=== PATIENT | male | born 2000 | race Hispanic/Latino ===

== ENCOUNTER 2022-01-05 07:45 | Day surgery (SDC) | payer BC ==
[2022-01-04 11:40] LABS: Absolute Lymphocytes (CBC) 1.9 K/uL (0.7-4.9); Hematocrit 49.6 % (39.6-49.0); Lymphocytes % 35.5 % (15.3-44.8); MPV 9.4 fL (7.6-11.3); RBC Red Blood Cell Count 5.09 M/uL (4.33-5.43)
[2022-01-04 11:57] LABS: BUN Blood Urea Nitrogen 19 mg/dL (7-18); Bicarbonate 31 mmol/L (21-32); Glucose Level 77 mg/dL (74-106); Potassium 4.6 mmol/L (3.5-5.1); Sodium Level 137 mmol/L (136-145)
[2022-01-05] MEDS ORDERED: Ringers Lactate 1,000 ML IV ONE (07:51)
[2022-01-05 08:27] VITALS: O2SAT 100
[2022-01-05] MEDS ORDERED: ACETAMINOPHEN 500 MG TAB ONE (08:53)
[2022-01-05] MEDS ORDERED: CELECOXIB 100 MG CAPSULE ONE ×2 (08:54→08:55)
[2022-01-05] MEDS ORDERED: FENTANYL CITR 100 MCG/2 ML ONE (09:06)
[2022-01-05] MEDS ORDERED: LIDOCAINE 1% MPF 5 ML VIAL ONE (09:06)
[2022-01-05] MEDS ORDERED: propofoL 200 MG/20 ML VIAL IV ONE (09:06)
[2022-01-05] MEDS ORDERED: MIDAZOLAM HCL 2 MG/2 ML INJ ONE (09:06)
[2022-01-05] MEDS ORDERED: KETOROLAC 30 MG/ML INJ ONE (09:43)
[2022-01-05] MEDS ORDERED: ONDANSETRON 4 MG/2 ML VIAL ONE (09:59)
[2022-01-05] MEDS ORDERED: Mastisol Adhesive Liq ONE (10:52)
--- NOTE | 2022-01-05 11:02 | P.BOP ---
Preoperative diagnosis: right thigh intramuscular mass Postoperative diagnosis: same Primary procedure: Excisional biopsy of right thigh intramuscular mass Estimated blood loss: <10cc Specimen: mass Findings: intramuscular mass Anesthesia: General Complications: None Transferred to: Recovery Room Condition: Good
[2022-01-05] MEDS ORDERED: HYDROMORPHONE HCL 1 MG/ML INJ ONE (11:57)
[2022-01-05 12:20] VITALS: BP 124/86; TEMP 97.2
[2022-01-05] MEDS ORDERED: CODEINE 30MG/APAP 300MG TAB ONE (12:36)
--- NOTE | 2022-01-11 17:02 | DS ---
Date of Discharge: 01/05/2022 Diagnosis: Right thigh intramuscular mass. Procedure: Excision of biopsy of right thigh intramuscular mass. Disposition: Home. Activity: As tolerated. No lifting. Plan: Follow up in my office in 1 week. Call for appointment at [phone]. Keep area dry for 48 shayne rs, then may remove outer dressings, and shower. AMBROCIO/AWA Voice ID: [id number] Report ID: [id number]
--- NOTE | 2022-01-11 17:14 | OP ---
Date of Procedure: 01/05/2022 Surgeon: Laith Fernandez MD Preoperative Diagnosis: Right thigh intramuscular mass deep to vastus lateralis muscle. Postoperative Diagnosis: Right thigh intramuscular mass deep to vastus lateralis muscle. Procedure: Excisional biopsy of right thigh intramuscular mass. Specimen: Mass. Findings: The patient has an intramuscular mass. This is attached to the muscle itself. The bone i s not involved. I am not sure if this is a previous injury or the tumor itself that is involving the muscle fibers. Wide resection of the area was done and sent to the pathologist. They want to have and they want to have some time to determine the kind of tumor before we can proceed or do any other definitive treatment. Anesthesia: General plus local. Indication: This is the case of a male, who comes to us with a right thigh tender mass. It has been like there for more than a year, increasing in size, giving pain and discomfort. He has been doing observation in that area, but it is getting to the point that it is so tender that if the pain goes a nd shoots down the leg and up on the hip region, he can clearly palpate the mass. We had an imaging done in past that located mass of this density on the area of the vastus lateralis muscle region. Th e patient understands the benefits, alternatives, and risks of excision, which include, but not limit ed to infection, bleeding, damage to adjacent structures, anesthesia complication, recurrence, [place], an d even . He also understands this may not relieve any symptoms. He might need more than one maldonado rgical intervention. He understands based on the final pathology, he may require for intervention ev en cancer treatment if we find that is the case. He understood, signed a consent. The area of chelsea rn was marked by me and the patient in the holding room. Mom is present. Procedure In Detail: The patient was brought to the operating room, placed in supine position. Anes thesia was done without complication. The right thigh was prepped and draped in the usual sterile fa shion. A time-out was called. We previously marked the area of concern. The patient is under anest hesia, so we did not put the local anesthetic just because we do not want to change the area yet. We are going to put local anesthetic at the end. An incision was made in the skin. Incision was evangelina ed down to first layer of subcutaneous tissue. Then, we found muscle. We carefully split the muscle fibers until deep to the muscle fiber, but it is still partially attached. We found this density. We used a fluoroscopy machine to localize the area little better since the MRI machine also localized for us preoperatively. We were able to localize the lesion and we cannot palpate any other masses. So, we carefully went around the lesion and removed the lesion with the muscle fibers attached to it . The area was irrigated. No bleeding. We cannot palpate any other masses and this does not involv e at least grossly any large nerve or blood vessels. The specimen sent to the pathologist and then w e proceeded to let the muscle come together. I approximated subcutaneous tissue with 3-0 chromic. T he fascia was also approximated. The subcutaneous tissue was closed with 3-0 chromic and the skin th en approximated in subcuticular closure. The patient tolerated the procedure well. A bandage was pl aced over the area. Sponge count and instrument counts correct. The patient was sent to recovery in stable condition. AMBROCIO/AWA Voice ID: [id number] Report ID: [id number]
== END 2022-01-05 12:44 | disposition home or self-care (01) ==
LOC: OR 07:45
PROVIDERS: ATTEND Surgery
PROC: 0KBQ0ZZ Excision of Right Upper Leg Muscle, Open Approach (ICD-10-PCS; 2022-01-05)
PROC: 0JBL0ZZ Excision of Right Upper Leg Subcutaneous Tissue and Fascia, Open Approach (ICD-10-PCS; principal; 2022-01-05 10:30)
DX: R22.41 Localized swelling, mass and lump, right lower limb (principal); Z20.822 Contact with and (suspected) exposure to COVID-19
CPT/HCPCS: 85025; 80048; 36415; 88304; 76000; 27328; 13121; U0003; J2704; J2250; J3010; J1170; J7120; J2405; 88305